=== PATIENT | male | born 1980 | race Caucasian/White ===

== ENCOUNTER 2019-01-31 07:05 | Emergency (ER) | payer OTHER ==
[~2019-01-31] VITALS: Ht 180.3 cm; Wt 109.1 kg
[2019-01-31] MEDS ORDERED: DULO30CA PO (07:10)
[2019-01-31] MEDS ORDERED: LIDOCAINE 4% CREAM 5GM (LMX4) TOP ONE (07:45)
[2019-01-31] MEDS ORDERED: MIRA3350 PO (07:47)
[2019-01-31] MEDS ORDERED: ANUS2.5C2 TOP (07:47)
[2019-01-31] MEDS ORDERED: LIDO4CRE2 EX (07:47)
[2019-01-31 08:05] VITALS: BP 138/82
== END 2019-01-31 08:21 | disposition home or self-care (01) ==
LOC: M ED 07:05
DX: K64.5 Perianal venous thrombosis (principal); F33.9 Major depressive disorder, recurrent, unspecified